=== PATIENT | female | born 1995 | race Caucasian/White ===

== ENCOUNTER 2020-03-07 21:07 | Emergency (ER) | payer BC, SELFPAY ==
[~2020-03-07] VITALS: Ht 167.6 cm; Wt 59.0 kg
[2020-03-07 21:07] VITALS: BP_SYST 123
[~2020-03-07 21:07] MED LIST: Depakote PO
--- NOTE | 2020-03-07 21:07 | NUR ---
Placed in room 08 . Placed on quality assurance monitor final, blood pressure machine and pulse oximeter. To gown for exam. Seizure precautions in place. Seizure pads applied to lettyrrubens. Side rails up. Report given to CHARISSA Thompson
--- NOTE | 2020-03-07 21:10 | NUR ---
Pt brought in by [facility]. Pt awake, alert, oriented x4. Pt states that she was sitting on her bedand reading through her phone, and woke up on the floor bleeding from 1" laceration on her head. Pt states she has hx of seizures, started keppra in may. pt states she woke up with head pain and laceration, and chipped tooth. no recollection of events.
--- NOTE | 2020-03-07 21:17 | NUR ---
EKG performed at BS by PHILIPPE Mandel. Physician given copy of EKG for review.
--- NOTE | 2020-03-07 21:30 | NUR ---
ER at bedside examining patient.
[2020-03-07] MEDS ORDERED: FOLI-43 PO (21:34)
[2020-03-07] MEDS ORDERED: LEVE1000 PO (21:34)
--- NOTE | 2020-03-07 21:34 | NUR ---
Medication reconciliation completed with information provided by Patient bottles. Any prior medication reconciliation on file was reviewed and corrected.
[2020-03-07 21:37] LABS: BILIRUBIN,URINE NEGATIVE (NEGATIVE); BLOOD, URINE 2+ (NEGATIVE); CLARITY/URINE CLEAR (CLEAR); COLOR,URINE YELLOW (YELLOW); GLUCOSE,URINE NEGATIVE (NEGATIVE); KETONES,URINE NEGATIVE (NEGATIVE); LEUKOCYTE ESTERASE ,URINE NEGATIVE (NEGATIVE); NITRITE, URINE NEGATIVE (NEGATIVE); PH,URINE 7.5 (5.0-8.0); PROTEIN URINE NEGATIVE (NEGATIVE); UROBILINOGEN,URINE 0.2 (0.2-1.0)
[2020-03-07 21:41] LABS: BASOPHILS % (AUTO) 0.4 % (0.0-2.0); EOSINOPHILS # (AUTO) 0.1 K/uL (0.0-0.4); EOSINOPHILS % (AUTO) 1.6 % (0.0-4.0); HEMATOCRIT 38.4 % (36-48); HEMOGLOBIN 12.9 g/dL (12.0-16.0); LYMPHOCYTES # (AUTO) 2.2 K/uL (1.0-5.5); LYMPHOCYTES % (AUTO) 42.7 % (20.5-51.5); MEAN CORPUSCULAR HEMOGLOBIN 29 pg (27-31); MEAN CORPUSCULAR HGB CONC 34 % (32-36); MEAN CORPUSCULAR VOLUME 86 fL (79.0-98.0); MONOCYTES # (AUTO) 0.4 K/uL (0.0-1.0); NEUTROPHILS # (AUTO) 2.5 K/uL (1.8-7.7); NEUTROPHILS % (AUTO) 48.3 % (40.0-70.0); PLATELET COUNT (AUTO) 203 K/uL (130-430); RED BLOOD CELL COUNT(AUTO) 4.44 MIL/uL (4.2-6.2); RED CELL DISTRIBUTION WIDTH 12.9 % (9.0-15.0); WHITE BLOOD COUNT (AUTO) 5.3 K/uL (4.8-10.8)
[2020-03-07 21:50] LABS: BACTERIA,URINE FEW /HPF (None Seen); MUCUS,URINE None Seen /LPF (None Seen); RBC,URINE 0-3 /HPF (0-3); WBC,URINE 0-3 /HPF (0-3)
--- NOTE | 2020-03-07 21:50 | NUR ---
Dr. Frazier consulting with Dr. Florence, Patient's Neurologist, regarding patient.
[2020-03-07 21:51] LABS: BARBITURATE, URINE NEGATIVE (NEG <=200); BENZODIAZEPINE, URINE NEGATIVE (NEG <=150); CANNABINOID, URINE NEGATIVE (NEG <=50); COCAINE, URINE NEGATIVE (NEG <=150); METHAMPHETAMINES SCREEN,URINE NEGATIVE (NEG <=500); OPIATE, URINE NEGATIVE (NEG <=100); PHENCYCLIDINE SCREEN,URINE NEGATIVE (NEG <=25); UR TRICYCLIC ANTIDEPRESSANTS NEGATIVE (NEG <=300); URINE AMPHETAMINE NEGATIVE (NEG <=500); URINE METHADONE NEGATIVE (NEG <=200); URINE OXYCODONE SCREEN NEGATIVE (NEG <=100); URINE PROPOXYPHENE SCREEN NEGATIVE (NEG <=300)
[2020-03-07 21:54] LABS: CALCIUM 8.7 mg/dL (8.4-11.0); CREATININE 0.92 mg/dL (0.55-1.30); POTASSIUM 3.5 mmol/L (3.5-5.1)
--- NOTE | 2020-03-07 21:54 | NUR ---
States he wants to increase Keppra dosage to 1500mg bid, and to give her nightly dosage her and send her home with new RX. Also indicated that patient should follow up on monday.
[2020-03-07 22:00] LABS: TOTAL BILIRUBIN 0.2 mg/dL (0.0-1.0)
[2020-03-07] MEDS ORDERED: DIPH-TET-PERTUS Vaccine 0.5 ML VIAL (ADACEL) I.M. ONE (22:00)
[2020-03-07] MEDS ORDERED: levETIRAcetam 500 MG TABLET PO ONE (22:00)
--- NOTE | 2020-03-07 22:08 | NUR ---
Patient transported to radiology via wheelchair, accompanied by THOR Michael Tech
--- NOTE | 2020-03-07 22:24 | NUR ---
returned from CT scan in stable condition
[2020-03-07] MEDS ORDERED: LIDOCAINE/EPI 1% 1:100000 20 ML VIAL INJ ONE ×2 (23:30→23:42)
--- NOTE | 2020-03-08 01:00 | NUR ---
Patient given written and verbal discharge instructions and verbalizes understanding. ER MD discussed with patient the results and treatment provided. Patient in stable condition. ID arm band removed. IV catheter removed intact and dressing applied, no active bleeding. Wound dressed, no active bleeding. Rx of Keppra 1500mg BID given. Patient educated on pain management and to follow up with PMD. Pain Scale 0/10. Opportunity for questions provided and answered. Medication side effect fact sheet provided.
[2020-03-08 01:36] VITALS: BP_SYST 127
== END 2020-03-08 01:36 | disposition home or self-care (01) ==
LOC: SED 21:07
DX: S01.81XA Laceration without foreign body of other part of head, initial encounter (principal); R56.9 Unspecified convulsions; Z20.828 Contact with and (suspected) exposure to other viral communicable diseases; W22.8XXA Striking against or struck by other objects, initial encounter; Y93.89 Activity, other specified; Y92.89 Other specified places as the place of occurrence of the external cause; Y99.8 Other external cause status
CPT/HCPCS: 36415; 70450-TC; 76376; 80053; 80307; 81000-TC; 81025; 84703; 85025; 90715; 93005; 99285